=== PATIENT | female | born 1975 | race Hispanic/Latino ===

== ENCOUNTER 2023-11-21 17:27 | Emergency (ER) | payer OTHER ==
[~2023-11-21] VITALS: Ht 157.5 cm; Wt 102.3 kg
[2023-11-21] VITALS (13 sets, daily range): BP systolic 99–127; BP diastolic 51–90
[2023-11-21] MEDS ORDERED: MORPHINE SULFATE 4 MG/ML VIAL IV ONE (17:30)
[2023-11-21] MEDS ORDERED: ONDANSETRON HCl 4 MG/2 ML SDV IV ONE (17:30)
[2023-11-21] MEDS ORDERED: PROMETHAZINE HCL 25 MG/ML AMP IM ONE (17:45)
[2023-11-21] MEDS ORDERED: SODIUM CHLORIDE 0.9% 1,000 ML IV ONE (18:05)
[2023-11-21 18:18] LABS: BASO% 0.3 % (0-3); EOS% 0.6 % (0-8); HEMATOCRIT 42.6 % (37.0-47.0); HEMOGLOBIN 13.9 g/dl (12.0-16.0); IMMATURE GRANULOCYTES 1.1 % (0.0-5.0); LYMPH% 15.7 % (15-41); MEAN CELL VOLUME 91.2 fL CALC (80.0-100.0); MEAN CORPUSCULAR HGB 29.8 pG CALC (26.0-32.0); MEAN CORPUSCULAR HGB CONC 32.6 g/dL CAL (32.0-36.0); MONO% 4.8 % (2-13); NEUT# 14.67 thou/uL (2.00-7.15); NEUT% 77.5 % (42-76); RED BLOOD COUNT 4.67 mill/uL (4.20-5.60); RED CELL DISTRI WIDTH 12.7 % (11.5-15.5)
[2023-11-21 18:41] LABS: ALBUMIN 4.6 g/dL (3.2-5.0); ALKALINE PHOSPHATASE 106 u/l (38-126); ANION GAP 14 (6-22 (CALC)); BILIRUBIN, TOTAL 0.8 mg/dL (0.02-1.3); BUN 17 mg/dL (7-17); BUN/CREATININE RATIO 26 (12-20 (CALC)); CARBON DIOXIDE 24 mmol/l (22-30); CHLORIDE 105 mmol/l (95-108); CREATININE 0.7 mg/dL (0.5-1.0); ETHYL ALCOHOL 0 mg/dl (0-30); GFR FOR AFR.AMER. > 60 ML/MIN (>=60 (CALC)); GFR OTHER RACES > 60 ML/MIN (>=60 (CALC)); LIPASE 70 u/l (23-300); POTASSIUM 3.9 mmol/l (3.5-5.1); SGOT/AST 100 u/l (14-36); SODIUM 139 mmol/l (137-146); TOTAL PROTEIN 7.5 g/dL (6.3-8.2)
[2023-11-22] MEDS ORDERED: VOLTAREN - GENE75 MG PO (00:19)
[2023-11-22] MEDS ORDERED: TYLENOL # 31 TA1 PO (00:19)
[2023-11-22] MEDS ORDERED: HYDROcodone 5 MG/Acetaminophen 325 MG/COMBO PO ONE (00:20)
[2023-11-22] MEDS ORDERED: DICLOFENAC SODIUM 75 MG/TAB PO ONE (00:20)
[2023-11-22 00:33] VITALS: BP 108/62
[2023-11-22] MEDS ORDERED: ZOFRAN4 MG/TAB PO (00:37)
[2023-11-22] MEDS ORDERED: ONDANSETRON 4 MG/TAB ODT PO ONE (00:40)
== END 2023-11-22 01:20 | disposition home or self-care (01) | DRG 605 ==
LOC: ED 17:27
PROVIDERS: Family Medicine
DX: S00.83XA Contusion of other part of head, initial encounter (principal); T14.8XXA Other injury of unspecified body region, initial encounter; M54.50 Low back pain, unspecified; M25.562 Pain in left knee; R10.12 Left upper quadrant pain; V49.50XA Passenger injured in collision with unspecified motor vehicles in traffic accident, initial encounter
CPT/HCPCS: Q9967